=== PATIENT | male | born 1965 ===

== ENCOUNTER 2021-12-23 20:25 | Emergency (ER) | payer OTHER ==
[~2021-12-23] VITALS: Ht 182.9 cm; Wt 120.7 kg
== END 2021-12-23 23:01 | disposition home or self-care (01) ==
LOC: ER 20:25
DX: M25.551 Pain in right hip (principal); M25.511 Pain in right shoulder; G89.29 Other chronic pain; E11.9 Type 2 diabetes mellitus without complications; W19.XXXA Unspecified fall, initial encounter
CPT/HCPCS: A9270